=== PATIENT | male | born 1970 | race Caucasian/White ===

== ENCOUNTER 2016-09-27 22:00 | Inpatient (IN) | payer BC, OTHER ==
--- NOTE | ~2016-09-27 | PA ---
Unit #: [id number] #: [id number] Patient: FADI COMER [id number] [facility] [address] [place] [address] [id number] MR#: [id number] NAME: FADI COMER ROOM: [facility] Age: 46 Sex: M Admission Date: 09/28/2016 : 1970 Date of Assessment: Attending Physician: Tao Reece M.D. Admitting Physician: Tao Reece M.D. Primary Care Physician: Generic Doctor Not In System PSYCHIATRIC ASSESSMENT DATE OF SERVICE 09/29/2016. INFORMANTS The patient, partially reliable; [facility], reliable; and [facility], reliable. CHIEF COMPLAINT Alcohol dependence. HISTORY OF PRESENT ILLNESS Mr. Comer is a 46-year-old man, who drinks multiple pints of whiskey daily. He was seen for assessment and referred to [facility], where he was declined. He then returned to the emergency room reporting ongoing withdrawal symptoms and was transferred to [facility] once a bed became available. PAST PSYCHIATRIC HISTORY The patient has had previous inpatient detox stays and rehab facilities. He is currently taking Celexa, Remeron, and BuSpar from his primary care physician. FAMILY PSYCHIATRIC HISTORY His father and sister were both alcoholics and of complications of alcohol. SOCIAL HISTORY The patient denied a history of childhood abuse or neglect. He is a single heterosexual man, who is currently homeless. He is a high-school graduate, who has difficulty functioning at work due to ongoing withdrawal symptoms. PAST MEDICAL HISTORY Significant for COPD, possible cirrhotic hepatitis, and history of GI bleeding. MEDICATIONS Lisinopril and Prilosec. ALLERGIES No known medication allergies. SUBSTANCE USE HISTORY Unit #: [id number] #: [id number] Patient: FADI COMER As noted above. MENTAL STATUS EXAMINATION Mr. Comer presented as a disheveled man, who appeared his stated age. He was cooperative with the examination. His speech was spontaneous and easily understood. His musculoskeletal examination was calm. His mood was irritable with a congruent affect. He was alert and fully oriented. His memory and concentration were fair. His thought processes were goal directed with no active psychosis. He denied suicidal ideation, intent, or plan. Insight and judgment were fair. Fund of knowledge and abstraction were fair. ASSETS AND LIABILITIES The patient is familiar with local resources and presents voluntarily for treatment. He is employed at this time. Liabilities include difficulty establishing and maintaining sobriety. ADMITTING DIAGNOSES AXIS I: Alcohol dependence. AXIS II: No diagnosis. AXIS III: Hypertension and chronic obstructive pulmonary disease. AXIS IV: AXIS V: PSYCHIATRIC PLAN The patient was admitted and placed on the alcohol detox protocol. His medications for his medical conditions will be restarted. He will enroll in psychotherapy groups and activities, and physical examination and laboratory studies will be ordered as indicated. TREATMENT GOALS Establishment of sobriety, improvement in insight, and improvement in coping skills. DISCHARGE PLANNING Follow up with [facility]. ESTIMATED LENGTH OF STAY 5 days. Dictated by... Tao Reece M.D. ESTHER/puja TD: 10/16/2016 13:46 JOB #: [id number] Unit #: [id number] #: [id number] Patient: FADI COMER PSYCHIATRIC ASSESSMENT Page 1 of 1 X Tao Reece MD X PSYCHIATRIC ASSESSMENT
--- NOTE | ~2016-09-27 | HP ---
Unit #: [id number] #: [id number] Patient: HENRY LIU [id number] [place] [address] [id number] MR#: [id number] NAME: HENRY LIU ROOM: 74 Age: 46 Sex: M Admission Date: 09/28/2016 : 1970 Attending Physician: Tao Reece M.D. Admitting Physician: Tao Reece M.D. Primary Care Physician: Generic Doctor Not In System HISTORY AND PHYSICAL HISTORY OF PRESENT ILLNESS Henry is a 46 year old admitted to [facility] because of his abuse of alcohol. PAST MEDICAL HISTORY 1. Long history of alcohol abuse. 2. High blood pressure. 3. COPD. PAST SURGICAL HISTORY Nothing reported. ALLERGIES No known drug allergies. SOCIAL HISTORY Smokes two packs per day. Drinks approximately a fifth of liquor on a daily basis. Denies illicit drug use. FAMILY HISTORY Medically noncontributory. REVIEW OF SYSTEMS CONSTITUTIONAL: No fever or chills. HEENT: Denies any sore throat, ear pain or runny nose. CARDIOVASCULAR: Denies chest pain, irregular heart rhythm or palpitations. CHEST: Denies shortness of breath or cough. No hemoptysis. GASTROINTESTINAL: Denies nausea, vomiting, diarrhea or chronic constipation. ENDOCRINE: Denies history of increased thirst or urination. No recent significant weight loss or gain. GENITOURINARY: Denies dysuria, frequency, or hematuria. SKIN: Denies any rashes. HEMATOLOGIC: Denies history of increased bleeding or bruising. MUSCULOSKELETAL: Denies any hot, swollen joints. No generalized muscle pain. NEUROLOGIC: Denies problems with vision or speech. No frequent, severe headaches. No numbness, tingling or weakness in any extremities. Denies loss of bladder or bowel control. CURRENT MEDICATIONS Lisinopril 20 mg q day. Unit #: [id number] #: [id number] Patient: HENRY LIU PHYSICAL EXAMINATION GENERAL: Alert, well-nourished, in no apparent distress. VITAL SIGNS: Blood pressure 170/100, heart rate 80, respirations 16, temperature 98.6. WEIGHT: 195 pounds. HEIGHT: 5'7". SKIN: Warm and dry without rash or lesion. HEENT: Normocephalic. TMs not viewed. Oral and nasal passages clear. Conjunctivae clear. Pupils equal, round and reactive to light and accommodation. Extraocular movements intact. NECK: Supple without lymphadenopathy or thyromegaly. HEART: Regular rate and rhythm without murmur. LUNGS: Clear. ABDOMEN: Soft, nontender. : Not done. EXTREMITIES: No evidence of cyanosis, clubbing or edema. Moves all extremities without focal deficit. NEUROLOGICAL: Grossly within normal limits. Cranial Nerves: II: Visual bob are intact. III, IV AND : Extraocular movements are intact. Pupils are equal, round and reactive to light. V: Facial sensation is grossly normal. VII: Facial movements and expression are normal. VIII: Auditory acuity grossly intact. IX, X: Uvula is midline. Phonation is normal. XI: Patient shrugs shoulders and turns head normally. XII: Tongue protrudes in the midline. Sensory and Motor Function: Sensory and motor sensation is grossly normal. Motor: moves all extremities well. Coordination: Gait is normal. Deep Tendon Reflexes: Intact. IMPRESSION Psychiatric admission RECOMMENDATIONS PSYCHIATRIC: Per psychiatrist. MEDICAL: I see no contraindications to participating in facility's activities. MEDICAL PROGNOSIS Good. MEDICAL CONDITION Stable. Dictated by... Iliana Roach PAlexAAlex-Reynaldo. for Bonnie Gordon/rohan TD: 09/28/2016 21:38 JOB #: [id number] Unit #: [id number] #: [id number] Patient: HENRY LIU HISTORY AND PHYSICAL Page 1 of 1 X Iliana Roach HISTORY AND PHYSICAL
--- NOTE | ~2016-09-27 | DS ---
Unit #: [id number] #: [id number] Patient: FADI COMER [id number] [facility] [address] [place] [address] [id number] I MR#: [id number] NAME: FADI COMER ROOM: [facility] Age: 46 Sex: M Admission Date: 09/28/2016 : 1970 Discharge Date: 09/30/2016 Attending Physician: Tao Reece M.D. Primary Care Physician: Generic Doctor Not In System DISCHARGE SUMMARY REASON FOR ADMISSION Mr. Comer is a 46-year-old man with a history of alcohol dependence, who reports difficulty functioning in the work place due to active alcohol use and withdrawal symptoms. He had no suicidal ideation, intent, or plan; and was admitted for stabilization. LABORATORY DATA Please see hospital chart. HOSPITAL COURSE The patient was admitted and placed on the alcohol detox protocol. His home medications for hypertension, COPD were restarted. He had an uneventful period of inpatient detox with minimal symptomatology, and appeared anxious to leave the hospital, stating that he wanted to "go to rehab with my ." He declined significant discharge planning activities with the oncology social work, but continued to deny suicidal ideation, intent, or plan, and was discharged in stable condition. DISCHARGE DIAGNOSES AXIS I: Alcohol dependence, major depression. AXIS II: No diagnosis. AXIS III: Hypertension and chronic obstructive pulmonary disease. AXIS IV: AXIS V: DISCHARGE INSTRUCTIONS Follow up with [facility] program of your choice and primary care physician. DISCHARGE MEDICATIONS Please see MAR. CONDITION AT DISCHARGE Improved. PROGNOSIS Fair. DIET Per primary care doctor. ACTIVITY Per primary care doctor. Unit #: [id number] #: [id number] Patient: FADI COMER Dictated by... Tao Reece M.D. [facility]/puja TD: 10/16/2016 13:44 JOB #: [id number] DISCHARGE SUMMARY Page 1 of 1 X Tao Reece MD X DISCHARGE SUMMARY
== END 2016-09-30 18:40 | disposition home or self-care (01) | DRG 897 ==
LOC: P1E 09-28 17:02
PROC: HZ2ZZZZ Detoxification Services for Substance Abuse Treatment (ICD-10-PCS; principal; 2016-09-28)
DX: F10.20 Alcohol dependence, uncomplicated (principal); I10 Essential (primary) hypertension; F17.210 Nicotine dependence, cigarettes, uncomplicated; J44.9 Chronic obstructive pulmonary disease, unspecified; F32.9 Major depressive disorder, single episode, unspecified
CPT/HCPCS: 86592